=== PATIENT | male | born 1965 | race Caucasian/White ===

== ENCOUNTER 2017-01-12 17:57 | Emergency (ER) | payer OTHER ==
[~2017-01-12] VITALS: Wt 90.9 kg
[2017-01-12] MEDS ORDERED: KETOROLAC 60 MG INJ IM STA (20:47)
--- NOTE | 2017-01-12 20:58 | ERD ---
ER Documentation Chief Complaint Chief Complaint severe back pain HPI 51-year-old male presents here in emergency department for complaints of right lower back pain that started yesterday after getting off the couch. Patient was lying down, suddenly got up from the couch, she describes the pain as sharp pain, 6/10 scale, as was upon movement accompanied with muscle spasms. Patient did not take any medications to help with symptoms. Patient denies any numbness or tingling. Patient denies any incontinence. Patient denies any fever chills. Patient denies any hematuria or dysuria. patient did not take any medication for pain. ROS All systems reviewed and are negative except as per history of present illness. Medications Home Meds Reported Medications [none] Unknown Strength No Conflict Check 01/12/17 Allergies Allergies: Coded Allergies: No Known Allergy (Unverified , 01/12/17) PMhx/Soc Medical and Surgical Hx: pt denies Medical Hx, pt denies Surgical Hx FmHx Family History: No coronary disease, No diabetes, No other Physical Exam Vitals Vital Signs Date Time Temp Pulse Resp B/P Pulse Ox O2 Delivery O2 Flow Rate FiO2 01/12/17 17:59 97.9 76 20 147/81 100 Physical Exam GENERAL: The patient is well developed and appropriate for usual state of health, in no apparent distress. CHEST: Clear to auscultation bilaterally. There are no rales, wheezes or rhonchi. HEART: Regular rate and rhythm. No murmurs, clicks, rubs or gallops. No S3 or S4. ABDOMEN: Soft, nontender and nondistended. Good bowel sounds. No rebound or guarding. No gross peritonitis. No gross organomegaly or masses. No Blake sign or McBurney point tenderness. BACK: No midline or flank tenderness. Muscle spasms noted in the right paraspinal aspect of the right lumbar spine, able to do full range of motion without any restriction. EXTREMITIES: Equal pulses bilaterally. There is no peripheral clubbing, cyanosis or edema. No focal swelling or erythema. Full range of motion. Grossly neurovascularly intact. NEURO: Alert and oriented. Cranial nerves 2-12 intact. Motor strength in all 4 extremities with 5/5 strength. Sensation grossly intact. Normal speech and gait. SKIN: There is no apparent rash or petechia. The skin is warm and dry. HEMATOLOGIC AND LYMPHATIC: There is no evidence of excessive bruising or lymphedema. No gross cervical, axillary, or inguinal lymphadenopathy. Results 24 hrs Laboratory Tests Test 01/12/17 20:15 Urine Color YELLOW Urine Clarity CLEAR Urine pH 5.0 Urine Specific [place] 1.025 Urine Ketones NEGATIVEmg/dL Urine Nitrite NEGATIVEmg/dL Urine Bilirubin NEGATIVEmg/dL Urine Urobilinogen NEGATIVEmg/dL Urine Leukocyte Esterase NEGATIVELeu/ul Urine Hemoglobin NEGATIVEmg/dL Urine Glucose NEGATIVEmg/dL Urine Total Protein NEGATIVEmg/dl Current Medications Medications (Trade) Dose Ordered Sig/Олег Route PRN Reason Start Time Stop Time Status Last Admin Dose Admin Acetaminophen/ Hydrocodone Bitart (Cossayuna (5/325)) 1 tab ONCE ONCE PO 01/12/17 21:00 01/12/17 21:01 DC 01/12/17 21:10 Ketorolac Tromethamine (Toradol) 60 mg ONCE STAT IM 01/12/17 20:47 01/12/17 20:49 DC 01/12/17 21:14 Patient was given medication for pain here in emergency department, after treatment, patient verbalized feeling much better. Patient's pain is improved. PROCEDURE: CT Lumbar Spine. CLINICAL INDICATION: Back pain TECHNIQUE: Continuous axial CT images were obtained. Sagittal and coronal reformations were created from the raw axial data. The images were reviewed on a PACS workstation. The calculated radiation dose measures 434 mGy centimeters. The CTDI measures 15 mGy One or more of the following dose reduction techniques were used: Automated exposure control. Adjustment of the mA and/or kV according to patient size. Use of iterative reconstruction technique. COMPARISON: none FINDINGS: There is a mild lumbar dextroscoliosis. . Vertebral body heights are preserved. There is minimal disc space narrowing from L3-L4 through L5-S1. No focal lytic or sclerotic lesions are identified. T12-L1: There is no visualized gross disc abnormality. No bony central or neural foraminal stenosis is identified. L1-L2: There is no visualized gross disc abnormality. There is minimal bilateral facet hypertrophy. No bony central or neural foraminal stenosis is identified. L2-L3: There is a minimal diffuse disc bulge. There is minimal bilateral facet hypertrophy. There is no central canal stenosis. There is no significant foraminal stenosis.. L3-L4: There is a mild diffuse disc bulge. There is minimal bilateral facet hypertrophy. There is no bony central canal stenosis. There is moderate left and mild to moderate right neural foraminal stenosis.. L4-L5: There is a mild to moderate broad-based disc protrusion, 5 mm. There is mild bilateral facet hypertrophy. There is mild central canal stenosis. There is mild to moderate bilateral neural foraminal stenosis.. L5-S1: There is a mild broad-based disc protrusion. There is mild bilateral facet hypertrophy. There is no bony central canal stenosis. There is mild to moderate bilateral foraminal stenosis.. There is no abnormal paravertebral soft tissue mass. IMPRESSION: 1. Mild lumbar dextroscoliosis. 2. 5 mm disc protrusion at L4-L5. Mild disc protrusions at L3-L4 and L5-S1. 3. Facet hypertrophy, mild at L4-5 and L5-S1. 4. Findings produce mild central canal stenosis at L4-5. 5. Mild to moderate and moderate appearing foraminal stenosis as noted from L3- L4 through L5-S1.. RPTAT: HBST .Gurvinder Zarate MD, MD Date Time Electronically viewed and signed by .Gurvinder Zarate MD, MD on 01/12/2017 22:14 Procedures/MDM Medical Decision Making: Patient's pain is most likely consistent with a back strain. There is no suspicion for neurovascular compromise. Patient has intact sensation and circulation of the affected extremity and distal extremities. No incontinence, no suspicion for cauda equina syndrome, no saddle anesthesia, no symptoms of any acute bacterial infection, no symptoms of any perirectal abscesses, pilonidal cyst.There is low suspicion for septic arthritis. Patient does not have any fever. No symptoms of any aortic dissection or aortic aneurysm. Radiology exam not indicated at this time. Disposition: Home. Patient is given prescription for ibuprofen for mild to moderate pain, Cossayuna for severe pain, Flexeril for muscle spasm. Patient was advised to avoid heavy lifting , apply warm compresses on affected area. Patient was advised that if symptoms are worse, numbness, tingling, high fever, unable to move joint, worsening symptoms, to return to emergency department immediately. Otherwise, patient is advised to follow up with the primary care doctor in 5-7 days for reevaluation of symptoms. Disclaimer: Inadvertent spelling and grammatical errors are likely due to EHR/ dictation software use and do not reflect on the overall quality of patient care. Also, please note that the electronic time recorded on this note does not necessarily reflect the actual time of the patient encounter. Departure Diagnosis: Primary Impression: Back pain Back pain location: low back pain Chronicity: acute Back pain laterality: left Sciatica presence: without sciatica Qualified Code: M54.5 - Acute left- sided low back pain without sciatica Additional Impression: Degenerative disc disease Spinal region: lumbosacral Qualified Code: M51.37 - Degeneration of intervertebral disc of lumbosacral region Condition: Stable Patient Instructions: Back Pain (Acute Or Chronic), Degenerative Disk Disease Additional Instructions: Patient is given prescription for ibuprofen for mild to moderate pain, Cossayuna for severe pain, Flexeril for muscle spasm. Patient was advised to avoid heavy lifting , apply warm compresses on affected area. Patient was advised that if symptoms are worse, numbness, tingling, high fever, unable to move joint, worsening symptoms, to return to emergency department immediately. Otherwise, patient is advised to follow up with the primary care doctor in 5-7 days for reevaluation of symptoms. DERREK BROWNE NP Jan 12, 2017 20:58
[2017-01-12] MEDS ORDERED: HYDROCODONE/APAP (5/325) TAB PO ONE (21:00)
[2017-01-12 21:19] LABS: ADD UMIC NO; UR ASCORBIC ACID NEGATIVE (NEGATIVE); UR BILIRUBIN (Dip) NEGATIVE (NEGATIVE); UR BLOOD (Dip) NEGATIVE (NEGATIVE); UR CLARITY CLEAR (CLEAR); UR COLOR YELLOW (YELLOW); UR GLUCOSE (Dip) NEGATIVE (NEGATIVE); UR KETONES (Dip) NEGATIVE (NEGATIVE); UR LEUKOCYTE ESTERASE (Dip) NEGATIVE Leu/ul (NEGATIVE); UR NITRITE (Dip) NEGATIVE (NEGATIVE); UR SPECIFIC GRAVITY (Dip) 1.025 (1.003-1.030); UR TOTAL PROTEIN (Dip) NEGATIVE (NEGATIVE); UR UROBILINOGEN (Dip) NEGATIVE (NEGATIVE)
--- NOTE | 2017-01-12 22:14 | RADRPT ---
PROCEDURE: CT Lumbar Spine. CLINICAL INDICATION: Back pain TECHNIQUE: Continuous axial CT images were obtained. Sagittal and coronal reformations were creat ed from the raw axial data. The images were reviewed on a PACS workstation. The calculated radiatio n dose measures 434 mGy centimeters. The CTDI measures 15 mGy One or more of the following dose reduction techniques were used: Automated exposure control. Adjustment of the mA and/or kV according to patient size. Use of iterative reconstruction technique. COMPARISON: none FINDINGS: There is a mild lumbar dextroscoliosis. . Vertebral body heights are preserved. There is minimal di sc space narrowing from L3-L4 through L5-S1. No focal lytic or sclerotic lesions are identified. T12-L1: There is no visualized gross disc abnormality. No bony central or neural foraminal stenosis is identified. L1-L2: There is no visualized gross disc abnormality. There is minimal bilateral facet hypertrophy. No bony central or neural foraminal stenosis is identified. L2-L3: There is a minimal diffuse disc bulge. There is minimal bilateral facet hypertrophy. There is no central canal stenosis. There is no significant foraminal stenosis.. L3-L4: There is a mild diffuse disc bulge. There is minimal bilateral facet hypertrophy. There is no bony central canal stenosis. There is moderate left and mild to moderate right neural foraminal tracy nosis.. L4-L5: There is a mild to moderate broad-based disc protrusion, 5 mm. There is mild bilateral facet hypertrophy. There is mild central canal stenosis. There is mild to moderate bilateral neural forami nal stenosis.. L5-S1: There is a mild broad-based disc protrusion. There is mild bilateral facet hypertrophy. There is no bony central canal stenosis. There is mild to moderate bilateral foraminal stenosis.. There is no abnormal paravertebral soft tissue mass. IMPRESSION: 1. Mild lumbar dextroscoliosis. 2. 5 mm disc protrusion at L4-L5. Mild disc protrusions at L3-L4 and L5-S1. 3. Facet hypertrophy, mild at L4-5 and L5-S1. 4. Findings produce mild central canal stenosis at L4-5. 5. Mild to moderate and moderate appearing foraminal stenosis as noted from L3-L4 through L5-S1.. RPTAT: HBST .Gurvinder Zarate MD, MD Date Time Electronically viewed and signed by .Gurvinder Zarate MD, MD on 01/12/2017 22:14 .T/
[2017-01-12] MEDS ORDERED: HYDR-906 PO (22:45)
[2017-01-12] MEDS ORDERED: IBUP-1542 PO (22:45)
[2017-01-12] MEDS ORDERED: CYCL-319 PO (22:45)
== END 2017-01-12 22:52 | disposition home or self-care (01) ==
LOC: FTE 17:57
DX: M51.37 Other intervertebral disc degeneration, lumbosacral region (principal)
CPT/HCPCS: 72131; 81003; 96372; 99285; J1885